=== PATIENT | male | born 1975 | race African-American/Black ===

== ENCOUNTER 2024-02-19 17:43 | Emergency (ER) | payer SELFPAY ==
[~2024-02-19] VITALS: Ht 177.8 cm; Wt 114.1 kg
[2024-02-19 17:45] VITALS: TEMP 98
[2024-02-19 18:14] LABS: BASO % 0.3 % (0.0-2.0); EOS % 0.3 % (0.0-4.0); GRAN # 4.8 K/mm3 (1.4-6.5); GRAN % 62.3 % (42.2-75.2); HEMATOCRIT 45.3 % (42.0-52.0); LYMPH # 2.2 K/mm3 (1.2-3.4); LYMPH % 28.4 % (20.0-51.0); MEAN CELL VOLUME 77 fl (80.0-100.0); MEAN CORPUSCULAR HEMOGLOBIN 24 pg (27-31); MEAN CORPUSCULAR HGB CONC 31 g/dl (33.0-37.0); MONO # 0.6 K/mm3 (0.1-0.6); MONO % 8.3 % (1.7-9.3); PLATELET COUNT 304 K/mm3 (130-400); RED BLOOD COUNT 5.88 M/mm3 (4.20-5.60); REDCELL DISTRIBUTION WIDTH-CV 14.4 % (11.5-14.5)
[2024-02-19] MEDS ORDERED: LR 1,000 ML IV ONE (18:15)
[2024-02-19 18:23] LABS: ALBUMIN 5.1 g/dL (3.5-5.0); BILIRUBIN,TOTAL 0.4 mg/dL (0.2-1.2); CALCIUM 10.8 mg/dL (8.4-10.2); CREATININE, serum 2.05 mg/dL (0.72-1.25)
[2024-02-19 20:40] LABS: PH 5.5 (5.0-8.5); URINE APPEARANCE CLEAR (CLEAR/HAZY); URINE BLOOD NEGATIVE (NEGATIVE); URINE COLOR YELLOW (YELLOW); URINE GLUCOSE NEGATIVE (NEGATIVE); URINE KETONE TRACE (NEGATIVE); URINE NITRATE NEGATIVE (NEGATIVE); URINE PROTEIN(semi-quant) 1+ (NEGATIVE); URINE UROBILINOGEN 0.2 E.U/dL (0.2-1.0)
[2024-02-19 21:20] LABS: COLLECTION METHOD CLEAN CATCH
[2024-02-19 22:10] VITALS: BP 124/78; PULSE 88
== END 2024-02-19 22:10 | disposition home or self-care (01) ==
LOC: COL.ER 17:43
PROVIDERS: Emergency Medicine
DX: N17.9 Acute kidney failure, unspecified (principal); R25.2 Cramp and spasm
CPT/HCPCS: J7120